=== PATIENT | female | born 1955 | race Caucasian/White ===

== ENCOUNTER 2016-09-16 08:37 | Outpatient (CLI) | payer MEDICARE, OTHER ==
[~2016-09-16] VITALS: Ht 170.2 cm; Wt 128.2 kg
[~2016-09-16 08:37] MED LIST: CRESTOR 10MG10 MG PO; GLUCOPHAGE500 MG/TAB PO; HUMALOG100 U/ML SQ; HYZAAR 50-12.1 UDTAB PO; LYRICA 50MG CAP50 MG PO; LYRICA200 MG PO; NORVASC 10MG10 MG PO; PRILOSEC 20MG20 MG PO; PRINIVIL20 MG PO; VICTOZA6 MG/ML SQ
[2016-09-16 09:19] VITALS: BP 150/79; PULSE 62; TEMP 98.6
[2016-09-16] MEDS ORDERED: KLOR-CON M2020 MEQ PO (09:24)
[2016-09-16] MEDS ORDERED: LASIX 40MG TABL40 MG PO (09:25)
[2016-09-16] MEDS ORDERED: HCTZ12.5TAB PO (09:27)
[2016-09-16] MEDS ORDERED: RT SPIRIVA18 MCG IH (09:28)
[2016-09-16] MEDS ORDERED: 00186-0372-20 IH (09:29)
[2016-09-16] MEDS ORDERED: XOPENEX HF0.045 MG/A IH (09:30)
[2016-09-16] MEDS ORDERED: LANTUS SOLOS100 U/ML SQ (09:32)
[2016-09-16] MEDS ORDERED: CEPHALEXIN500 M1 PO (11:58)
== END 2016-09-16 12:36 | disposition home or self-care (01) ==
LOC: EUO 08:37
DX: R55 Syncope and collapse (principal); R94.31 Abnormal electrocardiogram [ECG] [EKG]
CPT/HCPCS: C1764

== ENCOUNTER 2017-02-07 07:24 | Day surgery (SDC) | payer MEDICARE, OTHER ==
[2017-02-07] VITALS (280 sets, daily range): BP systolic 109–152; BP diastolic 50–76; PULSE 49–71; TEMP 97.6–98.3; O2SAT 82–100
[~2017-02-07] VITALS: Ht 170.2 cm; Wt 131.4 kg
[~2017-02-07 07:24] MED LIST changes: +00186-0372-20 IH; +CEPHALEXIN500 M1 PO; +HCTZ12.5TAB PO; +KLOR-CON M2020 MEQ PO; +LANTUS SOLOS100 U/ML SQ; +LASIX 40MG TABL40 MG PO; +RT SPIRIVA18 MCG IH; +XOPENEX HF0.045 MG/A IH
[2017-02-07] MEDS ORDERED: ZANTAC 150MG T150 MG PO (08:24)
[2017-02-07 12:34] LABS: ARTERIAL BLD GAS O2 SATURATION 93.2 % (92-100); ARTERIAL BLD GAS TCO2 CT 30.6; ARTERIAL BLOOD GAS HCO3 28.7 meq/L (22-26); ARTERIAL BLOOD GAS PO2 75.2 mmHg (80-100); ATS? YES; OXYHEMOGLOBIN 91.6 %
[2017-02-07 12:47] LABS: BASO % 0.6 % (0.0-2.0); EOS # 0.2 (0.0-0.7); EOS % 3.4 % (0-4.0); GRAN # 3.5 (1.4-6.5); GRAN % 76.1 % (42.2-75.2); HEMATOCRIT 42.2 % (37.0-47.0); HEMOGLOBIN 13.5 g/dl (12.5-16.0); LYMPH # 0.6 (1.2-3.4); LYMPH % 12.2 % (20.0-51.0); MEAN CELL VOLUME 85 fl (80.0-100.0); MEAN CORPUSCULAR HEMOGLOBIN 27 pg (27.0-31.0); MEAN CORPUSCULAR HGB CONC 32 g/dl (33.0-37.0); MEAN PLATELET VOLUME 10.8 fl (7.4-10.4); MONO # 0.3 (0.1-0.6); MONO % 7.3 % (1.7-9.3); PLATELET COUNT 121 K/mm3 (130-400); RED BLOOD COUNT 4.97 M/mm3 (4.10-5.30); WHITE BLOOD COUNT 4.7 K/mm3 (4.8-10.8)
[2017-02-07 12:58] LABS: ALBUMIN 3.4 gm/dL (3.5-5.0); BILIRUBIN,TOTAL 0.7 mg/dL (0.0-1.0); BLOOD UREA NITROGEN 22 mg/dL (7-17); CHLORIDE 100 mmol/L (98-107); POTASSIUM 4.1 mmol/L (3.4-5.0); TOTAL PROTEIN 6.5 gm/dL (6.4-8.2)
[2017-02-07 13:30] LABS: ALANINE AMINOTRANSFERASE 33 U/L (9-52); ALKALINE PHOSPHATASE 70 U/L (50-136); ANION GAP 11 mmol/L (7-16); CARBON DIOXIDE 27 mmol/L (22-30); CREATININE, serum 1.19 mg/dL (0.52-1.25); GLUCOSE 201 mg/dL (74-106); SODIUM 139 mmol/L (137-145)
[2017-02-07 13:33] LABS: CALCIUM 8.5 mg/dL (8.4-10.2)
[2017-02-07 13:40] LABS: TROPONIN-I < 0.012 ng/mL (0.000-0.034)
[2017-02-07 15:44] LABS: B-TYPE NATRIURETIC PEPTIDE 152 pg/mL (0-125)
[2017-02-08 01:01] VITALS: BP 94/47; PULSE 50; TEMP 97.4
[2017-02-08 03:57] VITALS: BP 110/50; PULSE 53; TEMP 98.2
[2017-02-08] MEDS ORDERED: LYRICA 100MG C100 M1 PO (06:39)
[2017-02-08] MEDS ORDERED: LYRICA 150MG C150 MG PO (06:40)
[2017-02-08 09:00] VITALS: BP 98/58
[2017-02-08 10:24] VITALS: BP 126/40; PULSE 68; TEMP 98.2
[2017-02-08 11:40] VITALS: PULSE 62
[2017-02-08 13:57] VITALS: BP 124/41; PULSE 67
== END 2017-02-08 15:06 | disposition home or self-care (01) ==
LOC: SDCO 07:24 → ICU 15:00 → SURG 20:39 → SDCO 02-08 15:06
PROVIDERS: Internal Medicine
DX: L73.2 Hidradenitis suppurativa (principal); E66.01 Morbid (severe) obesity due to excess calories; I10 Essential (primary) hypertension; J44.9 Chronic obstructive pulmonary disease, unspecified; M19.90 Unspecified osteoarthritis, unspecified site; I95.9 Hypotension, unspecified; E11.40 Type 2 diabetes mellitus with diabetic neuropathy, unspecified; K21.9 Gastro-esophageal reflux disease without esophagitis; G47.33 Obstructive sleep apnea (adult) (pediatric); Z95.818 Presence of other cardiac implants and grafts; R09.02 Hypoxemia; R41.82 Altered mental status, unspecified; Z87.891 Personal history of nicotine dependence; Z90.710 Acquired absence of both cervix and uterus; Z90.49 Acquired absence of other specified parts of digestive tract; Z68.42 Body mass index [BMI] 45.0-49.9, adult; Z79.4 Long term (current) use of insulin
CPT/HCPCS: OP; 99232-AI; J1650; J1815; J1885; J2310; J2405; J2550; J2704; J2710; J3010; J7040; J7120

== ENCOUNTER 2017-03-17 07:34 | Day surgery (SDC) | payer MEDICARE, OTHER ==
[~2017-03-17] VITALS: Ht 170.3 cm; Wt 139.2 kg
[2017-03-17] VITALS (8 sets, daily range): BP systolic 105–150; BP diastolic 56–74; PULSE 57–91; TEMP 97.9–98.8
[~2017-03-17 07:34] MED LIST changes: +LYRICA 100MG C100 M1 PO; +LYRICA 150MG C150 MG PO; +ZANTAC 150MG T150 MG PO
[2017-03-17 08:49] LABS: HEMOGLOBIN 13.5 g/dl (12.5-16.0); MEAN CELL VOLUME 82 fl (80.0-100.0); MEAN CORPUSCULAR HEMOGLOBIN 27 pg (27.0-31.0); MEAN CORPUSCULAR HGB CONC 32 g/dl (33.0-37.0); MEAN PLATELET VOLUME 10.6 fl (7.4-10.4); PLATELET COUNT 136 K/mm3 (130-400); REDCELL DISTRIBUTION WIDTH-CV 14.7 % (11.5-14.5)
[2017-03-17 09:02] LABS: INR 1.2 (0.8-3.0); PROTHROMBIN TIME 13.1 SECONDS (9.7-12.8)
[2017-03-17 09:03] LABS: CREATININE, serum 1.14 mg/dL (0.52-1.25)
[2017-03-18 04:06] VITALS: BP 129/62; PULSE 60; TEMP 98.1
[2017-03-18 07:31] VITALS: BP 123/96; PULSE 62; TEMP 98.4
[2017-03-18 11:48] VITALS: BP 131/64; PULSE 59; TEMP 98.1
[2017-03-18] MEDS ORDERED: CEPHALEXIN500 M1 PO (13:05)
[2017-03-18] MEDS ORDERED: TYLENOL 325MG325 MG PO (13:06)
== END 2017-03-18 14:00 ==
LOC: COL.CAR 07:34 → MEDICAL 12:32 → COL.CAR 03-18 14:00
PROVIDERS: Internal Medicine Cardiovascular Disease
DX: R00.1 Bradycardia, unspecified (principal); I10 Essential (primary) hypertension; E78.5 Hyperlipidemia, unspecified; E11.9 Type 2 diabetes mellitus without complications; G47.33 Obstructive sleep apnea (adult) (pediatric); J44.9 Chronic obstructive pulmonary disease, unspecified; Z79.4 Long term (current) use of insulin; I47.1 Supraventricular tachycardia; M19.90 Unspecified osteoarthritis, unspecified site; Z90.710 Acquired absence of both cervix and uterus; Z90.49 Acquired absence of other specified parts of digestive tract; Z87.891 Personal history of nicotine dependence; Z82.49 Family history of ischemic heart disease and other diseases of the circulatory system
CPT/HCPCS: OP; C1769; C1785; C1894; C1898; J0690; J1815; J2250; J2704; J7030